=== PATIENT | female | born 1965 | race Caucasian/White ===

== ENCOUNTER 2016-09-13 01:14 | Observation (INO) | payer OTHER ==
[~2016-09-13] VITALS: Ht 149.9 cm; Wt 72.0 kg
[~2016-09-13 01:14] MED LIST: ACCURETIC 201 TABLE1 PO; ASPIRIN325 MG PO; CALCIUM500 M4 PO; CELEXA40 MG PO; CIPROFLOXACIN500 M1 PO; CRESTOR40 MG PO; CYANOCOBALAM1000 MCG PO; DAILY VITAMIN1 EAC8 PO; FERROUS SULFAT325 MG PO; FLEXERIL10 MG PO; FOLIC ACID0.8 MG PO; GABAPENTIN100 MG PO; IRON325 M1 PO; ISOSORBIDE DINI30 MG PO; KLONOPIN1 MG PO; LEVOTHYROXINE100 MCG PO; LEVOTHYROXINE75 MCG PO; METFORMIN HCL500 MG PO; METOPROLOL TART25 MG PO; NAPROSYN500 MG PO; NITROGLYCERIN0.4 MG SL; PHENERGAN-CODE120 ML PO; PLAVIX75 MG PO; PROTONIX40 MG PO; TAMSULOSIN HCL0.4 MG PO; TRAZODONE HCL150 MG PO; VENTOLIN HFA18 GM IH; VICODIN 5-3001 EACH PO; WELLBUTRIN SR150 MG PO; ZESTORETIC 20-1 EAC1 NG; ZOFRAN4 MG PO
[2016-09-13 01:43] LABS: HEMATOCRIT 44.3 % (36.0-46.0); MCH 31.1 PG (29.0-34.0); MCHC 32.5 G/DL (30.0-36.0); MCV 95.7 FL (83-99); MEAN PLAT.VOLUME 9.6 uM^3 (9.5-12.4); PLATELET COUNT 201 K/uL (156-360); RBC DIS.WIDTH-CV 12.2 % (11.8-14.6); RBC DIS.WIDTH-SD 42.6 % (39-53); RED BLOOD COUNT 4.63 M/uL (3.80-5.20); WHITE BLOOD COUNT 7.1 K/uL (4.1-10.2)
[2016-09-13 01:58] LABS: CHLORIDE 101 mEq/L (99-109); POTASSIUM 3.9 mEq/L (3.7-5.4); SODIUM 140 mEq/L (136-147)
[2016-09-13 01:59] LABS: GLUCOSE 130 mg/dL (70-99)
[2016-09-13 02:01] LABS: ANION GAP 11 MEQ/L (2-14)
[2016-09-13 02:03] LABS: GFR ESTIMATE (CALCULATED) > 59 mL/min/
[2016-09-13 02:04] LABS: UREA NITROGEN (BUN) 15 mg/dL (9-23)
[2016-09-13 02:11] LABS: TROP-I INTERPRETATION NEGATIVE; TROPONIN-I < 0.01 ng/mL (0.0-0.30)
[2016-09-13 02:40] LABS: PROTHROMBIN TIME 9.8 (9.2-11.2); PTT 28.2 (25-32)
[2016-09-13 02:58] LABS: D-DIMER ELISA 0.33 mg/L FEU (< 0.57)
[2016-09-13] MEDS ORDERED: PERCOCET 7.51 TABLET PO (03:54)
[2016-09-13] MEDS ORDERED: LIPITOR80 MG PO (03:54)
[2016-09-13 08:42] LABS: TROP-I INTERPRETATION NEGATIVE; TROPONIN-I < 0.01 ng/mL (0.0-0.30)
[2016-09-13] MEDS ORDERED: CARDIZEM CD,CA240 MG PO (11:37)
[2016-09-13] MEDS ORDERED: LASIX20 MG PO (11:38)
[2016-09-13] MEDS ORDERED: PROAIR HFA8.5 GM IH (11:38)
[2016-09-13] MEDS ORDERED: YUVAFEM10 MCG VG (11:39)
[2016-09-13 13:03] VITALS: BP 134/64
[2016-09-13 14:36] LABS: TROP-I INTERPRETATION NEGATIVE; TROPONIN-I < 0.01 ng/mL (0.0-0.30)
[2016-09-13 15:44] VITALS: BP 124/59
[2016-09-13] MEDS ORDERED: ASPIR-LOW81 MG PO (15:46)
== END 2016-09-13 16:55 | disposition home or self-care (01) ==
LOC: EME 01:14 → EDOF 07:27 → 5WEST 12:57
PROVIDERS: Emergency Medicine; Physician Assistant
DX: R07.9 Chest pain, unspecified (principal); E78.5 Hyperlipidemia, unspecified; F17.210 Nicotine dependence, cigarettes, uncomplicated; I10 Essential (primary) hypertension; E11.42 Type 2 diabetes mellitus with diabetic polyneuropathy; F32.9 Major depressive disorder, single episode, unspecified; F41.9 Anxiety disorder, unspecified; K21.9 Gastro-esophageal reflux disease without esophagitis; I25.10 Atherosclerotic heart disease of native coronary artery without angina pectoris; Z95.5 Presence of coronary angioplasty implant and graft; E78.00 Pure hypercholesterolemia, unspecified; E03.9 Hypothyroidism, unspecified; E53.8 Deficiency of other specified B group vitamins; D50.9 Iron deficiency anemia, unspecified; E66.9 Obesity, unspecified; Z68.32 Body mass index [BMI] 32.0-32.9, adult; J45.909 Unspecified asthma, uncomplicated
CPT/HCPCS: 71020; 80048; 83880; 84484; 85027; 85379; 85610; 85730; 93005; 99281; 99284; G0378; J1644; J1815; J2270; J7030

== ENCOUNTER 2017-02-14 20:30 | Inpatient (IN) | payer OTHER ==
[~2017-02-14] VITALS: Ht 149.9 cm; Wt 81.2 kg
[~2017-02-14 20:30] MED LIST changes: +ASPIR-LOW81 MG PO; +CARDIZEM CD,CA240 MG PO; +IMDUR30 MG PO; -ISOSORBIDE DINI30 MG PO; +LASIX20 MG PO; +LIPITOR80 MG PO; +PERCOCET 10/1 TABLET PO; +PREMARIN VAGI42.5 GM VG; +PROAIR HFA8.5 GM IH; -WELLBUTRIN SR150 MG PO; +WELLBUTRIN XL300 MG PO
[2017-02-14 22:00] LABS: EOSINOPHIL (%) 1.9 % (0-5); EOSINOPHIL COUNT 0.1 K/uL (0-0.3); IMMATURE GRANULOCYTE (%) 0.2 % (0.0-0.7); INSTRUMENT ABS NEUTROPHIL CT 3.3 K/uL; LYMPHOCYTE COUNT 1.4 K/uL (1.0-2.8); MCH 31.5 PG (29.0-34.0); MCHC 32.8 G/DL (30.0-36.0); MCV 96.1 FL (83-99); MEAN PLAT.VOLUME 9.3 uM^3 (9.5-12.4); MONOCYTE (%) 10.6 % (3-12); MONOCYTE COUNT 0.6 K/uL (0-0.8); NEUTROPHIL (%) 61.4 % (45-76); NEUTROPHIL COUNT 3.3 K/uL (1.8-6.4); PLATELET COUNT 152 K/uL (156-360); RBC DIS.WIDTH-CV 12.5 % (11.8-14.6); RED BLOOD COUNT 4.89 M/uL (3.80-5.20); WHITE BLOOD COUNT 5.4 K/uL (4.1-10.2)
[2017-02-14 22:08] LABS: CHLORIDE 102 mEq/L (99-109); POTASSIUM 3.2 mEq/L (3.7-5.4); SODIUM 144 mEq/L (136-147)
[2017-02-14 22:10] LABS: GLUCOSE 147 mg/dL (70-99)
[2017-02-14 22:11] LABS: ANION GAP 12 MEQ/L (2-14)
[2017-02-14 22:12] LABS: TOTAL BILIRUBIN 0.5 mg/dL (0.0-1.0)
[2017-02-14 22:14] LABS: ALKALINE PHOSPHATASE 149 IU/L (3-129); GFR ESTIMATE (CALCULATED) > 59 mL/min/
[2017-02-14 22:15] LABS: UREA NITROGEN (BUN) 9 mg/dL (9-23)
[2017-02-14 22:23] LABS: TROP-I INTERPRETATION NEGATIVE; TROPONIN-I < 0.01 ng/mL (0.0-0.30)
[2017-02-15] MEDS ORDERED: LITE COAT ASPI325 M1 PO (00:37)
[2017-02-15] MEDS ORDERED: ZESTORETIC 20-1 EAC1 PO (00:41)
[2017-02-15] MEDS ORDERED: TRADJENTA5 MG PO (00:42)
[2017-02-15] MEDS ORDERED: ZETIA10 MG PO (00:42)
[2017-02-15] MEDS ORDERED: CALCIUM CITRAT200 MG PO (00:42)
[2017-02-15 03:23] VITALS: BP 148/77
[2017-02-15 07:03] VITALS: BP 141/67
[2017-02-15 08:34] LABS: POINT-OF-CARE METER ID UU14162508
[2017-02-15 10:40] VITALS: BP 124/66
[2017-02-15 11:37] LABS: POINT-OF-CARE METER ID UU14162508
[2017-02-15 15:10] VITALS: BP 146/84
[2017-02-15 16:26] LABS: POINT-OF-CARE METER ID UU14208750
[2017-02-15 20:04] VITALS: BP 103/57
[2017-02-15 21:49] LABS: POINT-OF-CARE METER ID UU14314084
[2017-02-15 23:25] VITALS: BP 134/62
[2017-02-16 03:56] VITALS: BP 126/59
[2017-02-16 07:05] VITALS: BP 135/73
[2017-02-16 07:08] LABS: EOSINOPHIL (%) 0 % (0-5); HEMATOCRIT 44.6 % (36.0-46.0); IMMATURE GRANULOCYTE (%) 0.6 % (0.0-0.7); IMMATURE GRANULOCYTE COUNT 0.1 K/uL; INSTRUMENT ABS NEUTROPHIL CT 15.6 K/uL; LYMPHOCYTE COUNT 1.2 K/uL (1.0-2.8); MCHC 33.2 G/DL (30.0-36.0); MCV 96.5 FL (83-99); MEAN PLAT.VOLUME 9.5 uM^3 (9.5-12.4); MONOCYTE (%) 2.1 % (3-12); MONOCYTE COUNT 0.4 K/uL (0-0.8); NEUTROPHIL (%) 90.1 % (45-76); NEUTROPHIL COUNT 15.6 K/uL (1.8-6.4); PLATELET COUNT 179 K/uL (156-360); RBC DIS.WIDTH-CV 12.6 % (11.8-14.6); RBC DIS.WIDTH-SD 45.1 % (39-53); RED BLOOD COUNT 4.62 M/uL (3.80-5.20); WHITE BLOOD COUNT 17.3 K/uL (4.1-10.2)
[2017-02-16 07:37] LABS: ANION GAP 11 MEQ/L (2-14); CHLORIDE 98 MEQ/L (99-109); GFR ESTIMATE (CALCULATED) > 59 mL/min/; POTASSIUM 3.7 MEQ/L (3.7-5.4); SAMPLE HEMOLYSIS CHECK 0; SAMPLE ICTERIC CHECK 0; SAMPLE LIPEMIA CHECK 0; SODIUM 141 MEQ/L (136-147)
[2017-02-16 07:43] LABS: GLUCOSE 268 mg/dL (70-99); UREA NITROGEN (BUN) 22 mg/dL (9-23)
[2017-02-16 10:56] LABS: POINT-OF-CARE METER ID UU14314084
[2017-02-16 15:30] VITALS: BP 135/66
[2017-02-16 16:17] LABS: POINT-OF-CARE METER ID UU14314084
[2017-02-16 22:25] LABS: POINT-OF-CARE METER ID UU14314084
[2017-02-17 00:24] VITALS: BP 125/64
[2017-02-17 07:15] VITALS: BP 105/51
[2017-02-17 09:52] LABS: POINT-OF-CARE METER ID UU14162508
[2017-02-17 11:47] LABS: POINT-OF-CARE METER ID UU14314084
[2017-02-17] MEDS ORDERED: AMOX TR-K CLV1 EAC4 PO (12:22)
[2017-02-17] MEDS ORDERED: DUONEB 2.5-0.5 M3 ML AEROSOL (12:22)
[2017-02-17] MEDS ORDERED: PREDNISONE10 MG PO (12:25)
[2017-02-17] MEDS ORDERED: ROBITUSSIN DM118 ML PO (13:33)
== END 2017-02-17 13:55 | disposition home or self-care (01) | DRG 190 ==
LOC: EME → EDBD 20:30 → EME 20:30 → EDOF 02-15 01:37 → 2EAST 02-15 01:37 → ENRESERV 02-15 01:38 → 2EAST 02-15 02:43
PROVIDERS: Emergency Medicine; Hospitalist
DX: J44.0 Chronic obstructive pulmonary disease with (acute) lower respiratory infection (principal); J20.9 Acute bronchitis, unspecified; J44.1 Chronic obstructive pulmonary disease with (acute) exacerbation; J45.21 Mild intermittent asthma with (acute) exacerbation; E87.6 Hypokalemia; J96.01 Acute respiratory failure with hypoxia; D72.829 Elevated white blood cell count, unspecified; T38.0X5A Adverse effect of glucocorticoids and synthetic analogues, initial encounter; I49.3 Ventricular premature depolarization; D64.9 Anemia, unspecified; E03.9 Hypothyroidism, unspecified; E11.40 Type 2 diabetes mellitus with diabetic neuropathy, unspecified; I10 Essential (primary) hypertension; I25.10 Atherosclerotic heart disease of native coronary artery without angina pectoris; E78.5 Hyperlipidemia, unspecified; K21.9 Gastro-esophageal reflux disease without esophagitis; R00.0 Tachycardia, unspecified; F32.9 Major depressive disorder, single episode, unspecified; F41.9 Anxiety disorder, unspecified; Z68.36 Body mass index [BMI] 36.0-36.9, adult; E66.9 Obesity, unspecified; Z79.82 Long term (current) use of aspirin; F17.210 Nicotine dependence, cigarettes, uncomplicated; Z82.49 Family history of ischemic heart disease and other diseases of the circulatory system; Z95.5 Presence of coronary angioplasty implant and graft
CPT/HCPCS: 71020; 80048; 80053; 82948; 84484; 85025; 93005; 94640; 94640 76; 94799; 99202; 99281; 99285; J1650; J1815; J2920; J2930; J7050; J7644

== ENCOUNTER 2017-08-02 23:22 | Emergency (ER) | payer OTHER ==
[~2017-08-02 23:22] MED LIST changes: +AMOX TR-K CLV1 EAC4 PO; +CALCIUM CITRAT200 MG PO; +DUONEB 2.5-0.5 M3 ML AEROSOL; +LITE COAT ASPI325 M1 PO; +PREDNISONE10 MG PO; +ROBITUSSIN DM118 ML PO; +TRADJENTA5 MG PO; +ZESTORETIC 20-1 EAC1 PO; +ZETIA10 MG PO
== END 2017-08-02 23:45 | disposition left against medical advice (07) ==
LOC: EME 23:22
DX: R51 Headache (principal); M79.646 Pain in unspecified finger(s); Y09 Assault by unspecified means; Z53.21 Procedure and treatment not carried out due to patient leaving prior to being seen by health care provider